=== PATIENT | female | born 1955 | race Caucasian/White ===

== ENCOUNTER 2019-07-08 13:47 | Observation (INO) ==
--- NOTE | 2019-07-08 14:29 | Emergency Department Note ---
Disposition Clinical Impression: Arrhythmia Qualifiers: Arrhythmia type: unspecified cardiac arrhythmia Qualified Code(s): I49.9 - Cardiac arrhythmia, unspecified Disposition: Admitted As Inpatient Condition: Good Time of Disposition: 17:05 General Adult HPI - General Chief complaint: ED Arrhythmia/Palpitations Stated complaint: "heart is out of rhythm" Time Seen by Provider: 07/08/19 13:54 Source: patient Limitations: no limitations - History of Present Illness HPI Narrative: 63 year old female with history of hypertension, hyperlipidemia, and osteoporosis presents to the emergency department for her "heart being out of rhythm." She states this started a week ago after being treated for cystitis with macrobid and amoxicillin. She states her heart flutters and feels funny constantly throughout the day, is not exertional or positional. She denies chest pain or chest pressure but does say she has a burning sensation. She does admit to some intermittent shortness of breath that is worse if exerting herself but not positional. She states she does have some lightheadedness but nothing that is new. She said she saw her nurse practitioner who did an EKG and said she was okay to go home. The patient called her manufacturing sr engineer today and was told to come to the emergency department. Denies nausea, vomiting, diarrhea, dysuria, frequency, abdominal pain, fever, chills, Pain Scale: 0 - Related Data Home Medications Medication Instructions Recorded Confirmed Verapamil HCl [Calan] 40 mg PO BID PRN 05/21/15 04/27/19 Celecoxib [Celebrex] 200 mg PO DAILY PRN 02/15/16 04/27/19 Levalbuterol HCl [Xopenex Neb] 3 ml IH QID PRN 02/15/16 04/27/19 Atorvastatin [Lipitor] 20 mg PO HS 01/12/17 04/27/19 [place]-3 Acid Ethyl Esters [Lovaza] 1 gm PO DAILY 01/12/17 04/27/19 Fluticasone/Vilanterol [Breo 1 puff IH DAILY 08/05/17 04/27/19 Ellipta 200-25 Mcg INH] Fluticasone Propionate Nasal 1 spr NS DAILY PRN 01/04/18 04/27/19 [Flonase] HYDROcodone/Acet 5/325 mg [[place] 1 tab PO DAILY PRN 01/04/18 04/27/19 5-325 mg] Oxygen 2 l IH AD 01/04/18 04/27/19 Previous Rx's Medication Instructions Recorded Doxycycline 100 mg PO BID #20 capsule 04/27/19 Allergies Allergy/AdvReac Type Severity Reaction Status Date / Time azithromycin Allergy Unknown Unknown Verified 04/27/19 10:15 Cefaclor Allergy Unknown Unknown Verified 04/27/19 10:15 Cephalosporins Allergy Unknown Unknown Verified 04/27/19 10:15 ciprofloxacin Allergy Unknown Unknown Verified 04/27/19 10:15 Macrolide Antibiotics Allergy Unknown Unknown Verified 04/27/19 10:15 ofloxacin Allergy Unknown Unknown Verified 04/27/19 10:15 Quinolones Allergy Unknown Unknown Verified 04/27/19 10:15 Beta-Lactum Allergy Unknown Unknown Uncoded 04/27/19 10:15 Constitutional: Denies: fever Cardiovascular: Reports: palpitations. Denies: chest pain, edema, syncope Respiratory: Reports: other (intermintent shortness of breath that is not exertional or positional). Denies: cough, dyspnea Gastrointestinal: Denies: abdominal pain, nausea, vomiting, diarrhea Genitourinary: Denies: urgency, dysuria, frequency Neurological: Denies: headache, weakness, numbness, paresthesias Past Medical History - Past Medical History Medical history: Reports: COPD, DVT, hyperlipidemia, hypertension, osteoporosis, other Surgical history: Reports: appendectomy, , hip replacement, hysterectomy, orthopedic, other Psychiatric history: Reports: no psych history INFANT BABYSITTER history: Reports: no INFANT BABYSITTER history - Social History Smoking Status: Never smoker Smokeless Tobacco Status: No Alcohol use: Reports: none Drug use: Reports: none Physical Exam - General Limitations: no limitations General appearance: alert, in no apparent distress - Head Head exam: atraumatic, normocephalic - Eye Eye exam: Present: normal appearance, PERRL, EOMI - Chest Chest inspection: Present: normal inspection, symmetric chest wall rise. Absent: tenderness - Respiratory Respiratory exam: Present: normal lung sounds bilaterally. Absent: respiratory distress, wheezes - Cardiovascular Cardiovascular exam: Present: regular rate, normal rhythm - Abdominal Exam Abdominal exam: Present: soft, Non-Tender. Absent: distention, guarding, rigidity - Expanded Lower Extremity Exam Lower leg exam: Present: other (2 plus pitting edema bilaterally ) Neurovascular/Tendon exam: Present: other (DP and PT pulses +2/4 bilaterally lower extremity) - Psychiatric Psychiatric exam: Present: normal affect, normal mood Course Vital Signs Temperature 98.4 F 07/08/19 13:52 Pulse Rate 56 07/08/19 13:52 Respiratory Rate 16 07/08/19 13:52 Blood Pressure 152/81 07/08/19 13:52 O2 Sat by Pulse Oximetry 96 07/08/19 13:52 Temperature 98.4 F 07/08/19 14:00 Pulse Rate 75 07/08/19 16:50 Respiratory Rate 17 07/08/19 16:50 Blood Pressure 140/80 07/08/19 16:50 O2 Sat by Pulse Oximetry 98 07/08/19 16:50 Oxygen Delivery Oxygen Delivery Room Air Medical Decision Making - Lab Data Result diagrams: 07/08/19 14:10 07/08/19 14:10 Lab Results 07/08/19 07/08/19 07/08/19 Range/Units 14:10 14:10 14:10 WBC 7.5 (4.3-11.1) K/mcL RBC 4.44 (3.82-4.97) M/mcL Hgb 14.0 (11.5-15.4) g/dL Hct 42.4 (35.3-44.9) % MCV 95.5 (83.0-100.0) fL MCH 31.5 (28.0-33.3) pg MCHC 33.0 (31.6-35.5) g/dL RDW 12.9 (11.5-14.5) % Plt Count 309 (140-400) K/mcL MPV 10.0 (9.4-12.4) fL Immature Gran % 0.3 (0-4) % Seg Neutrophils % 42.6 % Lymphocytes % 44.1 % Monocytes % 9.4 % Eosinophils % 2.9 % Basophils % 0.7 % Neutrophils # 3.2 (1.6-8.9) K/mcL Lymphocytes # 3.3 (0.6-4.6) K/mcL Monocytes # 0.7 (0.0-1.3) K/mcL Eosinophils # 0.2 (0.0-0.6) K/mcL Basophils # 0.1 (0.0-0.2) K/mcL PT 10.7 (9.4-12.1) Seconds INR 0.9 APTT 39.2 H (26.0-36.0) Seconds Sodium 141 (136-145) mEq/L Potassium 4.0 (3.5-5.1) mEq/L Chloride 103 (98-107) mEq/L Carbon Dioxide 28 (23-29) mEq/L BUN 15 (8-23) mg/dL Creatinine 0.76 (0.60-1.20) mg/dL Est GFR ( Amer) > 60 (> 60) Est GFR (Non-Af Amer) > 60 (> 60) BUN/Creatinine Ratio 20 (6-26) Glucose 106 H (70-105) mg/dL Calculated Osmolality 293 (280-300) Calcium 9.9 (8.6-10.3) mg/dL Magnesium 2.0 (1.6-2.6) mg/dL Troponin I < 0.03 (< 0.04) ng/mL TSH 1.389 (0.340-5.600) mcIU/mL Urine Color (Yellow) Urine Clarity (Clear) Urine pH (5.0-8.0) pH Units Ur Specific [place] (1.010-1.025) Urine Protein (Neg-Trace) mg/dL Urine Glucose (UA) (Normal) mg/dL Urine Ketones (Negative) mg/dL Urine Blood (Negative) Urine Nitrite (Negative) Urine Bilirubin (Negative) Urine Urobilinogen (Normal) mg/dL Ur Leukocyte Esterase (Negative) Ur Culture Indicated? (NO) Urine Opiates Screen (Hngsmg=157) ng/mL Ur Buprenorphine Scrn (Cutoff=5) ng/mL Ur Barbiturates Screen (Apgtqf=832) ng/mL Ur Phencyclidine Scrn (Cutoff=25) ng/mL Ur Amphetamines Screen (Jytpyi=0027) ng/mL U Benzodiazepines Scrn (Nvjvwi=699) ng/mL Urine Cocaine Screen (Cutoff= 300) ng/mL U Marijuana (THC) Screen (Cutoff = 50) ng/mL Ur Drug Screen Interp 07/08/19 07/08/19 Range/Units 14:57 14:57 WBC (4.3-11.1) K/mcL RBC (3.82-4.97) M/mcL Hgb (11.5-15.4) g/dL Hct (35.3-44.9) % MCV (83.0-100.0) fL MCH (28.0-33.3) pg MCHC (31.6-35.5) g/dL RDW (11.5-14.5) % Plt Count (140-400) K/mcL MPV (9.4-12.4) fL Immature Gran % (0-4) % Seg Neutrophils % % Lymphocytes % % Monocytes % % Eosinophils % % Basophils % % Neutrophils # (1.6-8.9) K/mcL Lymphocytes # (0.6-4.6) K/mcL Monocytes # (0.0-1.3) K/mcL Eosinophils # (0.0-0.6) K/mcL Basophils # (0.0-0.2) K/mcL PT (9.4-12.1) Seconds INR APTT (26.0-36.0) Seconds Sodium (136-145) mEq/L Potassium (3.5-5.1) mEq/L Chloride (98-107) mEq/L Carbon Dioxide (23-29) mEq/L BUN (8-23) mg/dL Creatinine (0.60-1.20) mg/dL Est GFR ( Amer) (> 60) Est GFR (Non-Af Amer) (> 60) BUN/Creatinine Ratio (6-26) Glucose (70-105) mg/dL Calculated Osmolality (280-300) Calcium (8.6-10.3) mg/dL Magnesium (1.6-2.6) mg/dL Troponin I (< 0.04) ng/mL TSH (0.340-5.600) mcIU/mL Urine Color Yellow (Yellow) Urine Clarity Clear (Clear) Urine pH 6.0 (5.0-8.0) pH Units Ur Specific [place] 1.013 (1.010-1.025) Urine Protein Negative (Neg-Trace) mg/dL Urine Glucose (UA) Normal (Normal) mg/dL Urine Ketones Negative (Negative) mg/dL Urine Blood Negative (Negative) Urine Nitrite Negative (Negative) Urine Bilirubin Negative (Negative) Urine Urobilinogen Normal (Normal) mg/dL Ur Leukocyte Esterase Negative (Negative) Ur Culture Indicated? NO (NO) Urine Opiates Screen Negative (Dnzprh=829) ng/mL Ur Buprenorphine Scrn Negative (Cutoff=5) ng/mL Ur Barbiturates Screen Negative (Ecmfpb=167) ng/mL Ur Phencyclidine Scrn Negative (Cutoff=25) ng/mL Ur Amphetamines Screen Negative (Kgjzvk=1654) ng/mL U Benzodiazepines Scrn Negative (Ssoazi=023) ng/mL Urine Cocaine Screen Negative (Cutoff= 300) ng/mL U Marijuana (THC) Screen Negative (Cutoff = 50) ng/mL Ur Drug Screen Interp See Below
[2019-07-08] MEDS ORDERED: Aspirin 325 MG TABLET PO ONE (14:33)
[2019-07-08 14:45] LABS: Basophils # 0.1 K/mcL (0.0-0.2); Basophils % 0.7 %; Eosinophils # 0.2 K/mcL (0.0-0.6); Eosinophils % 2.9 %; Hematocrit 42.4 % (35.3-44.9); Immature Granulocytes % 0.3 % (0-4); Lymphocytes # 3.3 K/mcL (0.6-4.6); Lymphocytes % 44.1 %; Mean Corpuscular Hemoglobin 31.5 pg (28.0-33.3); Mean Corpuscular Volume 95.5 fL (83.0-100.0); Monocytes # 0.7 K/mcL (0.0-1.3); Monocytes % 9.4 %; Neutrophils # 3.2 K/mcL (1.6-8.9); Platelet Count 309 K/mcL (140-400); Red Blood Count 4.44 M/mcL (3.82-4.97); Red Cell Distribution Width 12.9 % (11.5-14.5); Segmented Neutrophils % 42.6 %; White Blood Count 7.5 K/mcL (4.3-11.1)
[2019-07-08 15:08] LABS: INR 0.9; Prothrombin Time 10.7 Seconds (9.4-12.1)
[2019-07-08 15:11] LABS: Activated Partial Thrombo Time 39.2 Seconds (26.0-36.0)
[2019-07-08] MEDS ORDERED: Nitroglycerin 0.4 MG TAB.SUBL SL PRN (15:12)
[2019-07-08 15:14] LABS: BUN/Creatinine Ratio 20 (6-26); Blood Urea Nitrogen 15 mg/dL (8-23); Calcium 9.9 mg/dL (8.6-10.3); Carbon Dioxide 28 mEq/L (23-29); Chloride 103 mEq/L (98-107); Glucose 106 mg/dL (70-105); Osmolality,Calculated 293 (280-300); Sodium 141 mEq/L (136-145); Troponin I < 0.03 ng/mL (< 0.04); eGFR For African Americans > 60 (> 60); eGFR For Non-African Americans > 60 (> 60)
[2019-07-08 15:20] LABS: Thyroid Stimulating Hormone 1.389 mcIU/mL (0.340-5.600)
--- NOTE | 2019-07-08 15:20 | Emergency Department Note ---
Disposition Clinical Impression: Arrhythmia Qualifiers: Arrhythmia type: unspecified cardiac arrhythmia Qualified Code(s): I49.9 - Cardiac arrhythmia, unspecified Disposition: Admitted As Inpatient Condition: Good Referrals: Flakito Mercado MD [Primary Care Provider] - Forms: ED Satisfaction Letter Time of Disposition: 16:58 Arrhythmia/Palpitations HPI - General Chief Complaint: ED Arrhythmia/Palpitations Stated Complaint: "heart is out of rhythm" Time Seen by Provider: 07/08/19 13:54 Source: patient Mode of arrival: private vehicle Limitations: no limitations Nursing Notes Reviewed: Yes Vital Signs Reviewed: Yes - History of Present Illness HPI Narrative: 63F that has been feeling like her heart is out of rhythm and felt unwell for a week, went and saw her PCP a week ago who dx her with UTI, placed her on macrobid, ordered a heart monitor on the internet which told her that her heart rhythm was "not normal", she returned to PCP's yesterday, they ordered an event monitor, sent her home. She then called Dr. Kathleen Lauren's office this morning and they recommended that she be evaluated here. Pt reports she initially started seeing Dr. Lauren for swelling in her legs, about a month ago. Pt reports lightheadedness, exertional SOB, left sided sharp chest pain. Pt reports 4/10 chest heaviness right now. She denies dysuria/urinary frequency right now. - Related Data Home Medications Medication Instructions Recorded Confirmed Verapamil HCl [Calan] 40 mg PO BID PRN 05/21/15 04/27/19 Celecoxib [Celebrex] 200 mg PO DAILY PRN 02/15/16 04/27/19 Levalbuterol HCl [Xopenex Neb] 3 ml IH QID PRN 02/15/16 04/27/19 Atorvastatin [Lipitor] 20 mg PO HS 01/12/17 04/27/19 [place]-3 Acid Ethyl Esters [Lovaza] 1 gm PO DAILY 01/12/17 04/27/19 Fluticasone/Vilanterol [Breo 1 puff IH DAILY 08/05/17 04/27/19 Ellipta 200-25 Mcg INH] Fluticasone Propionate Nasal 1 spr NS DAILY PRN 01/04/18 04/27/19 [Flonase] HYDROcodone/Acet 5/325 mg [[place] 1 tab PO DAILY PRN 01/04/18 04/27/19 5-325 mg] Oxygen 2 l IH AD 01/04/18 04/27/19 Previous Rx's Medication Instructions Recorded Doxycycline 100 mg PO BID #20 capsule 04/27/19 Allergies Allergy/AdvReac Type Severity Reaction Status Date / Time azithromycin Allergy Unknown Unknown Verified 04/27/19 10:15 Cefaclor Allergy Unknown Unknown Verified 04/27/19 10:15 Cephalosporins Allergy Unknown Unknown Verified 04/27/19 10:15 ciprofloxacin Allergy Unknown Unknown Verified 04/27/19 10:15 Macrolide Antibiotics Allergy Unknown Unknown Verified 04/27/19 10:15 ofloxacin Allergy Unknown Unknown Verified 04/27/19 10:15 Quinolones Allergy Unknown Unknown Verified 04/27/19 10:15 Beta-Lactum Allergy Unknown Unknown Uncoded 04/27/19 10:15 Review of Systems: In addition to that documented in the HPI above, the additional ROS was obtained: Constitutional: Denies fevers or chills Eyes: Denies vision changes ENMT: Denies sore throat CV: Reports left sided chest pain, chest heaviness Resp: Reports exertional SOB GI: Denies vomiting or diarrhea : Denies painful urination or urinary frequency MSK: Denies recent trauma Skin: Denies new rashes Neuro: Denies new numbness or tingling or weakness Reports lightheadedness All systems ED: reviewed and negative except as stated. Constitutional: Denies: fever Cardiovascular: Reports: palpitations. Denies: chest pain, edema, syncope Respiratory: Reports: other (intermintent shortness of breath that is not exertional or positional). Denies: cough, dyspnea Gastrointestinal: Denies: abdominal pain, nausea, vomiting, diarrhea Genitourinary: Denies: urgency, dysuria, frequency Neurological: Denies: headache, weakness, numbness, paresthesias Past Medical History - Past Medical History Attestation: Yes The following information was validated with the patient. Medical history: Reports: COPD, DVT, hyperlipidemia, hypertension, osteoporosis, other Surgical history: Reports: appendectomy, , hip replacement, hysterectomy, orthopedic, other Psychiatric history: Reports: no psych history COUNTER MAKER history: Reports: no COUNTER MAKER history - Social History Smoking Status: Never smoker Smokeless Tobacco Status: No Alcohol use: Reports: none Drug use: Reports: none Physical Exam General: A&O x 3. No acute distress. Well developed, well nourished. Head: atraumatic, normocephalic. ENT: No conjunctival injection, no scleral icterus. PERRLA. EOMI. Oropharynx non- erythematous. mucous membranes moist. Neuro: No focal deficits, no speech deficit, no facial droop, mentating well. BUE/BLE Str 5/5. Pulm: Lungs CTAB A/P. No wheezes, rales, ronchi. Cardio: Irregular rhythm. No m/r/g. Chest not tender to palpation. Abd: Soft, non-distended. Normoactive bowel sounds. Non-tender to palpation. No guarding. Non rigid. Extremities: Radial pulses 2+ brandy, dorsalis pedis/posterior tibialis 2+ brandy. No LE edema. No cyanosis, clubbing. Skin: warm, dry, intact. No rashes. Psych: Appropriate mood and affect. Answers questions appropriately. Cooperative with exam. - General Limitations: no limitations General appearance: alert, in no apparent distress Course Vital Signs Temperature 98.4 F 07/08/19 13:52 Pulse Rate 56 07/08/19 13:52 Respiratory Rate 16 07/08/19 13:52 Blood Pressure 152/81 07/08/19 13:52 O2 Sat by Pulse Oximetry 96 07/08/19 13:52 Temperature 98.4 F 07/08/19 14:00 Pulse Rate 75 07/08/19 16:50 Respiratory Rate 17 07/08/19 16:50 Blood Pressure 140/80 07/08/19 16:50 O2 Sat by Pulse Oximetry 98 07/08/19 16:50 Oxygen Delivery Oxygen Delivery Room Air Arrhythmia/Palpitations - [facility] Narrative Medical decision making narrative: 63F with Pmhx of HTN who presents with one week of heart palpitations that were also picked up by an internet heart monitor that was advised to come here by her assistant director of admissions. Pt currently has burning chest pain and heaviness, will do a nitro trial and administer an aspirin. Suspect admission. Patient was given a nitroglycerin which she states alleviated her chest heaviness but did not alleviate the burning pain in the left side of her chest. Patient's chest x-ray did not show any acute abnormalities. Troponin was negative. Pt did have an irregular heart rate on physical exam and EKG showed PVCs. Cardiology was consulted, Dr Sreedhar Lauren responded and had no further recommendations at this time. Pt was admitted to the hospitalist, Dr. Matt, who agreed to accept the patient to his service. Results of the workup were shared with the patient at the bedside, she was given an opportunity to ask questions, and all of her concerns were addressed. Pt was stable at time of disposition. - Medical Records Medical records reviewed: Yes I reviewed the patient's medical records. - Lab Data Lab results reviewed: Yes I reviewed the patient's lab results. Result diagrams: 07/08/19 14:10 07/08/19 14:10 Lab Results 07/08/19 07/08/19 07/08/19 Range/Units 14:10 14:10 14:10 WBC 7.5 (4.3-11.1) K/mcL RBC 4.44 (3.82-4.97) M/mcL Hgb 14.0 (11.5-15.4) g/dL Hct 42.4 (35.3-44.9) % MCV 95.5 (83.0-100.0) fL MCH 31.5 (28.0-33.3) pg MCHC 33.0 (31.6-35.5) g/dL RDW 12.9 (11.5-14.5) % Plt Count 309 (140-400) K/mcL MPV 10.0 (9.4-12.4) fL Immature Gran % 0.3 (0-4) % Seg Neutrophils % 42.6 % Lymphocytes % 44.1 % Monocytes % 9.4 % Eosinophils % 2.9 % Basophils % 0.7 % Neutrophils # 3.2 (1.6-8.9) K/mcL Lymphocytes # 3.3 (0.6-4.6) K/mcL Monocytes # 0.7 (0.0-1.3) K/mcL Eosinophils # 0.2 (0.0-0.6) K/mcL Basophils # 0.1 (0.0-0.2) K/mcL PT 10.7 (9.4-12.1) Seconds INR 0.9 APTT 39.2 H (26.0-36.0) Seconds Sodium 141 (136-145) mEq/L Potassium 4.0 (3.5-5.1) mEq/L Chloride 103 (98-107) mEq/L Carbon Dioxide 28 (23-29) mEq/L BUN 15 (8-23) mg/dL Creatinine 0.76 (0.60-1.20) mg/dL Est GFR ( Amer) > 60 (> 60) Est GFR (Non-Af Amer) > 60 (> 60) BUN/Creatinine Ratio 20 (6-26) Glucose 106 H (70-105) mg/dL Calculated Osmolality 293 (280-300) Calcium 9.9 (8.6-10.3) mg/dL Magnesium 2.0 (1.6-2.6) mg/dL Troponin I < 0.03 (< 0.04) ng/mL TSH 1.389 (0.340-5.600) mcIU/mL Urine Color (Yellow) Urine Clarity (Clear) Urine pH (5.0-8.0) pH Units Ur Specific [place] (1.010-1.025) Urine Protein (Neg-Trace) mg/dL Urine Glucose (UA) (Normal) mg/dL Urine Ketones (Negative) mg/dL Urine Blood (Negative) Urine Nitrite (Negative) Urine Bilirubin (Negative) Urine Urobilinogen (Normal) mg/dL Ur Leukocyte Esterase (Negative) Ur Culture Indicated? (NO) Urine Opiates Screen (Ezjnhe=810) ng/mL Ur Buprenorphine Scrn (Cutoff=5) ng/mL Ur Barbiturates Screen (Ffkqpx=200) ng/mL Ur Phencyclidine Scrn (Cutoff=25) ng/mL Ur Amphetamines Screen (Uuzfpi=4152) ng/mL U Benzodiazepines Scrn (Lkvpmf=493) ng/mL Urine Cocaine Screen (Cutoff= 300) ng/mL U Marijuana (THC) Screen (Cutoff = 50) ng/mL Ur Drug Screen Interp 07/08/19 07/08/19 Range/Units 14:57 14:57 WBC (4.3-11.1) K/mcL RBC (3.82-4.97) M/mcL Hgb (11.5-15.4) g/dL Hct (35.3-44.9) % MCV (83.0-100.0) fL MCH (28.0-33.3) pg MCHC (31.6-35.5) g/dL RDW (11.5-14.5) % Plt Count (140-400) K/mcL MPV (9.4-12.4) fL Immature Gran % (0-4) % Seg Neutrophils % % Lymphocytes % % Monocytes % % Eosinophils % % Basophils % % Neutrophils # (1.6-8.9) K/mcL Lymphocytes # (0.6-4.6) K/mcL Monocytes # (0.0-1.3) K/mcL Eosinophils # (0.0-0.6) K/mcL Basophils # (0.0-0.2) K/mcL PT (9.4-12.1) Seconds INR APTT (26.0-36.0) Seconds Sodium (136-145) mEq/L Potassium (3.5-5.1) mEq/L Chloride (98-107) mEq/L Carbon Dioxide (23-29) mEq/L BUN (8-23) mg/dL Creatinine (0.60-1.20) mg/dL Est GFR ( Amer) (> 60) Est GFR (Non-Af Amer) (> 60) BUN/Creatinine Ratio (6-26) Glucose (70-105) mg/dL Calculated Osmolality (280-300) Calcium (8.6-10.3) mg/dL Magnesium (1.6-2.6) mg/dL Troponin I (< 0.04) ng/mL TSH (0.340-5.600) mcIU/mL Urine Color Yellow (Yellow) Urine Clarity Clear (Clear) Urine pH 6.0 (5.0-8.0) pH Units Ur Specific [place] 1.013 (1.010-1.025) Urine Protein Negative (Neg-Trace) mg/dL Urine Glucose (UA) Normal (Normal) mg/dL Urine Ketones Negative (Negative) mg/dL Urine Blood Negative (Negative) Urine Nitrite Negative (Negative) Urine Bilirubin Negative (Negative) Urine Urobilinogen Normal (Normal) mg/dL Ur Leukocyte Esterase Negative (Negative) Ur Culture Indicated? NO (NO) Urine Opiates Screen Negative (Mzaqzo=724) ng/mL Ur Buprenorphine Scrn Negative (Cutoff=5) ng/mL Ur Barbiturates Screen Negative (Cbtsit=693) ng/mL Ur Phencyclidine Scrn Negative (Cutoff=25) ng/mL Ur Amphetamines Screen Negative (Mvibat=3751) ng/mL U Benzodiazepines Scrn Negative (Stgxrt=700) ng/mL Urine Cocaine Screen Negative (Cutoff= 300) ng/mL U Marijuana (THC) Screen Negative (Cutoff = 50) ng/mL Ur Drug Screen Interp See Below - Radiology Data Radiology results reviewed: Yes I reviewed the patient's radiology results. Chest X-Ray 07/08/19 14:58 IMPRESSION: No acute cardiopulmonary process. D/ / 07/08/2019 15:09:26 Cora De MD / April Ramírez Interpreting Provider: Cora De MD - EKG Data EKG attestation: Yes I reviewed and interpreted this EKG. EKG results narrative: Heart rate 84, rhythm sinus with frequent PVCs, axis normal. Intervals within normal limits. No ST segment elevation noted. Minimal ST depression noted in leads 2, aVL, V4 through V6. When compared with previous EKG dated 06/30/2013 previous EKG shows sinus rhythm.
--- NOTE | 2019-07-08 15:22 | Emergency Department Note ---
Disposition Clinical Impression: Arrhythmia Qualifiers: Arrhythmia type: unspecified cardiac arrhythmia Qualified Code(s): I49.9 - Cardiac arrhythmia, unspecified Disposition: Admitted As Inpatient Condition: Good Time of Disposition: 17:03 General Adult HPI - General Chief complaint: ED Arrhythmia/Palpitations Stated complaint: "heart is out of rhythm" Time Seen by Provider: 07/08/19 13:54 Source: patient Mode of arrival: private vehicle Limitations: no limitations Nursing Notes Reviewed: Yes Vital Signs Reviewed: Yes - History of Present Illness Pain Scale: 0 - Related Data Home Medications Medication Instructions Recorded Confirmed Verapamil HCl [Calan] 40 mg PO BID PRN 05/21/15 04/27/19 Celecoxib [Celebrex] 200 mg PO DAILY PRN 02/15/16 04/27/19 Levalbuterol HCl [Xopenex Neb] 3 ml IH QID PRN 02/15/16 04/27/19 Atorvastatin [Lipitor] 20 mg PO HS 01/12/17 04/27/19 [place]-3 Acid Ethyl Esters [Lovaza] 1 gm PO DAILY 01/12/17 04/27/19 Fluticasone/Vilanterol [Breo 1 puff IH DAILY 08/05/17 04/27/19 Ellipta 200-25 Mcg INH] Fluticasone Propionate Nasal 1 spr NS DAILY PRN 01/04/18 04/27/19 [Flonase] HYDROcodone/Acet 5/325 mg [[place] 1 tab PO DAILY PRN 01/04/18 04/27/19 5-325 mg] Oxygen 2 l IH AD 01/04/18 04/27/19 Previous Rx's Medication Instructions Recorded Doxycycline 100 mg PO BID #20 capsule 04/27/19 Allergies Allergy/AdvReac Type Severity Reaction Status Date / Time azithromycin Allergy Unknown Unknown Verified 04/27/19 10:15 Cefaclor Allergy Unknown Unknown Verified 04/27/19 10:15 Cephalosporins Allergy Unknown Unknown Verified 04/27/19 10:15 ciprofloxacin Allergy Unknown Unknown Verified 04/27/19 10:15 Macrolide Antibiotics Allergy Unknown Unknown Verified 04/27/19 10:15 ofloxacin Allergy Unknown Unknown Verified 04/27/19 10:15 Quinolones Allergy Unknown Unknown Verified 04/27/19 10:15 Beta-Lactum Allergy Unknown Unknown Uncoded 04/27/19 10:15 Constitutional: Denies: fever Cardiovascular: Reports: palpitations. Denies: chest pain, edema, syncope Respiratory: Reports: other (intermintent shortness of breath that is not exertional or positional). Denies: cough, dyspnea Gastrointestinal: Denies: abdominal pain, nausea, vomiting, diarrhea Genitourinary: Denies: urgency, dysuria, frequency Neurological: Denies: headache, weakness, numbness, paresthesias Past Medical History - Past Medical History Medical history: Reports: COPD, DVT, hyperlipidemia, hypertension, osteoporosis, other Surgical history: Reports: appendectomy, , hip replacement, hysterectomy, orthopedic, other Psychiatric history: Reports: no psych history GYPSUM CALCINER history: Reports: no GYPSUM CALCINER history - Social History Smoking Status: Never smoker Smokeless Tobacco Status: No Alcohol use: Reports: none Drug use: Reports: none Physical Exam - General Limitations: no limitations General appearance: alert, in no apparent distress Course Vital Signs Temperature 98.4 F 07/08/19 13:52 Pulse Rate 56 07/08/19 13:52 Respiratory Rate 16 07/08/19 13:52 Blood Pressure 152/81 07/08/19 13:52 O2 Sat by Pulse Oximetry 96 07/08/19 13:52 Temperature 98.4 F 07/08/19 14:00 Pulse Rate 75 07/08/19 16:50 Respiratory Rate 17 07/08/19 16:50 Blood Pressure 140/80 07/08/19 16:50 O2 Sat by Pulse Oximetry 98 07/08/19 16:50 Oxygen Delivery Oxygen Delivery Room Air Medical Decision Making - [facility] Narrative Medical decision making narrative: Chest X-Ray 07/08/19 14:58 IMPRESSION: No acute cardiopulmonary process. D/ / 07/08/2019 15:09:26 Cora De MD / April Ramírez Interpreting Provider: Cora De MD 1700 hrs. patient is admitted to the hospitalist service. They are in agreement with plan. - Lab Data Result diagrams: 07/08/19 14:10 07/08/19 14:10 Lab Results 07/08/19 07/08/19 07/08/19 Range/Units 14:10 14:10 14:10 WBC 7.5 (4.3-11.1) K/mcL RBC 4.44 (3.82-4.97) M/mcL Hgb 14.0 (11.5-15.4) g/dL Hct 42.4 (35.3-44.9) % MCV 95.5 (83.0-100.0) fL MCH 31.5 (28.0-33.3) pg MCHC 33.0 (31.6-35.5) g/dL RDW 12.9 (11.5-14.5) % Plt Count 309 (140-400) K/mcL MPV 10.0 (9.4-12.4) fL Immature Gran % 0.3 (0-4) % Seg Neutrophils % 42.6 % Lymphocytes % 44.1 % Monocytes % 9.4 % Eosinophils % 2.9 % Basophils % 0.7 % Neutrophils # 3.2 (1.6-8.9) K/mcL Lymphocytes # 3.3 (0.6-4.6) K/mcL Monocytes # 0.7 (0.0-1.3) K/mcL Eosinophils # 0.2 (0.0-0.6) K/mcL Basophils # 0.1 (0.0-0.2) K/mcL PT 10.7 (9.4-12.1) Seconds INR 0.9 APTT 39.2 H (26.0-36.0) Seconds Sodium 141 (136-145) mEq/L Potassium 4.0 (3.5-5.1) mEq/L Chloride 103 (98-107) mEq/L Carbon Dioxide 28 (23-29) mEq/L BUN 15 (8-23) mg/dL Creatinine 0.76 (0.60-1.20) mg/dL Est GFR ( Amer) > 60 (> 60) Est GFR (Non-Af Amer) > 60 (> 60) BUN/Creatinine Ratio 20 (6-26) Glucose 106 H (70-105) mg/dL Calculated Osmolality 293 (280-300) Calcium 9.9 (8.6-10.3) mg/dL Magnesium 2.0 (1.6-2.6) mg/dL Troponin I < 0.03 (< 0.04) ng/mL TSH 1.389 (0.340-5.600) mcIU/mL Urine Color (Yellow) Urine Clarity (Clear) Urine pH (5.0-8.0) pH Units Ur Specific [place] (1.010-1.025) Urine Protein (Neg-Trace) mg/dL Urine Glucose (UA) (Normal) mg/dL Urine Ketones (Negative) mg/dL Urine Blood (Negative) Urine Nitrite (Negative) Urine Bilirubin (Negative) Urine Urobilinogen (Normal) mg/dL Ur Leukocyte Esterase (Negative) Ur Culture Indicated? (NO) Urine Opiates Screen (Fqqwqq=904) ng/mL Ur Buprenorphine Scrn (Cutoff=5) ng/mL Ur Barbiturates Screen (Vkooti=061) ng/mL Ur Phencyclidine Scrn (Cutoff=25) ng/mL Ur Amphetamines Screen (Twriaf=1917) ng/mL U Benzodiazepines Scrn (Qywykd=387) ng/mL Urine Cocaine Screen (Cutoff= 300) ng/mL U Marijuana (THC) Screen (Cutoff = 50) ng/mL Ur Drug Screen Interp 07/08/19 07/08/19 Range/Units 14:57 14:57 WBC (4.3-11.1) K/mcL RBC (3.82-4.97) M/mcL Hgb (11.5-15.4) g/dL Hct (35.3-44.9) % MCV (83.0-100.0) fL MCH (28.0-33.3) pg MCHC (31.6-35.5) g/dL RDW (11.5-14.5) % Plt Count (140-400) K/mcL MPV (9.4-12.4) fL Immature Gran % (0-4) % Seg Neutrophils % % Lymphocytes % % Monocytes % % Eosinophils % % Basophils % % Neutrophils # (1.6-8.9) K/mcL Lymphocytes # (0.6-4.6) K/mcL Monocytes # (0.0-1.3) K/mcL Eosinophils # (0.0-0.6) K/mcL Basophils # (0.0-0.2) K/mcL PT (9.4-12.1) Seconds INR APTT (26.0-36.0) Seconds Sodium (136-145) mEq/L Potassium (3.5-5.1) mEq/L Chloride (98-107) mEq/L Carbon Dioxide (23-29) mEq/L BUN (8-23) mg/dL Creatinine (0.60-1.20) mg/dL Est GFR ( Amer) (> 60) Est GFR (Non-Af Amer) (> 60) BUN/Creatinine Ratio (6-26) Glucose (70-105) mg/dL Calculated Osmolality (280-300) Calcium (8.6-10.3) mg/dL Magnesium (1.6-2.6) mg/dL Troponin I (< 0.04) ng/mL TSH (0.340-5.600) mcIU/mL Urine Color Yellow (Yellow) Urine Clarity Clear (Clear) Urine pH 6.0 (5.0-8.0) pH Units Ur Specific [place] 1.013 (1.010-1.025) Urine Protein Negative (Neg-Trace) mg/dL Urine Glucose (UA) Normal (Normal) mg/dL Urine Ketones Negative (Negative) mg/dL Urine Blood Negative (Negative) Urine Nitrite Negative (Negative) Urine Bilirubin Negative (Negative) Urine Urobilinogen Normal (Normal) mg/dL Ur Leukocyte Esterase Negative (Negative) Ur Culture Indicated? NO (NO) Urine Opiates Screen Negative (Yrmvdu=183) ng/mL Ur Buprenorphine Scrn Negative (Cutoff=5) ng/mL Ur Barbiturates Screen Negative (Drqefd=909) ng/mL Ur Phencyclidine Scrn Negative (Cutoff=25) ng/mL Ur Amphetamines Screen Negative (Mhqkpb=2772) ng/mL U Benzodiazepines Scrn Negative (Jysfzh=096) ng/mL Urine Cocaine Screen Negative (Cutoff= 300) ng/mL U Marijuana (THC) Screen Negative (Cutoff = 50) ng/mL Ur Drug Screen Interp See Below Attestation Statement - Attestation Attestation: This documentation is done with the assistance of Dragon dictation. Despite efforts made to ensure accuracy, there may be inaccuracies in infection control coordinator or s pelling and typographical errors. I examined this patient and my medical decision-making was reviewed with the Resident Physician. I agree with the documented findings, disposition and treatment plan as described except to the extent set forth below. Patient was seen and evaluated by Dr. Nolasco, I agree with their evaluation and management plan, I supervised care the patient's stay. Patient presents today with what she describes as chest pressure she says that her heart rate has been out of sync for about a week. She attributes it to having a UTI which she can follow herself skipping beats. She spoke to her gang mower operator the toilet come in to be seen that Dr. Lauren. No chest pain at this time but more of a burning sensation. Rented a nitroglycerin trial aspirin she does have PVCs on her EKG and on her rhythm strip which looked unifocal. She most likely will need admission. I reviewed the residents documentation and agree with the residents assessment and plan of care. I have personally had face to face time with the patient. (Brief History, Brief Exam, and MDM) I personally supervised and was present for the rehman/critical portions of the following procedures completed by the resident: EKG was interpreted by the resident under my supervision, I agree with their interpretation.
[2019-07-08 15:35] LABS: Bilirubin,Urine Negative (Negative); Blood,Urine Negative (Negative); Clarity,Urine Clear (Clear); Color,Urine Yellow (Yellow); Glucose,Urine (UA) Normal (Normal); Ketones,Urine Negative (Negative); Leukocyte Esterase,Urine Negative (Negative); Nitrite,Urine Negative (Negative); Protein,Urine Negative (Neg-Trace); Specific Gravity,Urine 1.013 (1.010-1.025); Urobilinogen,Urine Normal (Normal)
[2019-07-08 15:38] LABS: Amphetamine Screen,Urine Negative ng/mL (Cutoff=1000); Barbiturate Screen,Urine Negative ng/mL (Cutoff=200); Benzodiazepines Screen,Urine Negative ng/mL (Cutoff=200); Cannabinoid Screen,Urine Negative ng/mL (Cutoff = 50); Cocaine Screen,Urine Negative ng/mL (Cutoff= 300); Opiate Screen,Urine Negative ng/mL (Cutoff=300); Phencyclidine Screen,Urine Negative ng/mL (Cutoff=25)
[2019-07-08] MEDS ORDERED: Naloxone 0.4 MG/ML INJ IVP PRN (16:59)
[2019-07-08] MEDS ORDERED: traMADol 50 MG TABLET PO PRN (16:59)
[2019-07-08] MEDS ORDERED: *HR* Promethazine 25 MG/ML VIAL IVP PRN (16:59)
[2019-07-08] MEDS ORDERED: Ondansetron 4 MG/2 ML VIAL IVP PRN (16:59)
[2019-07-08] MEDS ORDERED: Mag Hydrox/Al Hydrox/Simeth 30 ML UDC PO PRN (16:59)
[2019-07-08] MEDS ORDERED: Acetaminophen 325 MG TABLET PO PRN (16:59)
--- NOTE | 2019-07-08 17:03 | Internal Med History&Physical ---
Date of Encounter: 07/08/19 Time of Encounter: 17:18 Internal Medicine - H&P: HPI Admitted From: Home Plans for Post Hospital Care: Home History of present illness: Ms. Reece is a 63 year old female with history of hypertension, hyperlipidemia , COPD, and osteoporosis presents to the emergency department for palpitation. She was treated for UTI with Macrobid and amoxicillin about a week ago and then started developing palpitation. She ordered an online heart monitor which read as abnormal ecg. She was seen at PCP office and a event monitor was ordered, cardiology was contact later who advised patient to the ED for further evaluation. Pt reported burning sensation on the left sided chest with occasional shortness of breath. She denies chest pain, lightheadedness, or syncope. She denies drinking large amount of coffe. She take Breo for COPD but does not use albuterol currently. She never had PA or CAD in the past. She reported absence of fever, chills, or night sweat. In the ED, her vs were stable. Labs were unremarkable including normal electrolytes and troponin. EKG showed NSR with frequent PVCs. CXR was unremarkable. She is admitted for further evaluation. Code status will be full code while she is in the hospital. Past Med Surg Social Fam HX - Past Medical History Medical history: COPD, DVT, hyperlipidemia, hypertension, osteoporosis, other Additional medical history: vit d deficiency, Psychiatric history: no psych history - Past Surgical History Surgical History: appendectomy, , hip replacement, hysterectomy, orthopedic, other - Social History Smoking Status: Never smoker Smokeless Tobacco Status: No Alcohol use: none Drug use: none Internal Medicine - H&P: Meds Atorvastatin Calcium [Lipitor] 20 mg PO QPM 07/08/19 [History] Fluticasone/Vilanterol [Breo Ellipta 200-25 Mcg INH] 1 each IH BID 07/08/19 [History] Allergy/AdvReac Type Severity Reaction Status Date / Time azithromycin Allergy Unknown Unknown Verified 04/27/19 10:15 Cefaclor Allergy Unknown Unknown Verified 04/27/19 10:15 Cephalosporins Allergy Unknown Unknown Verified 04/27/19 10:15 ciprofloxacin Allergy Unknown Unknown Verified 04/27/19 10:15 Macrolide Antibiotics Allergy Unknown Unknown Verified 04/27/19 10:15 ofloxacin Allergy Unknown Unknown Verified 04/27/19 10:15 Quinolones Allergy Unknown Unknown Verified 04/27/19 10:15 Beta-Lactum Allergy Unknown Unknown Uncoded 04/27/19 10:15 All Systems PM: A 10-system review of systems was performed and is negative for pertinent findings except as documented above in the HPI. Review of systems: REVIEW OF SYSTEMS: CONSTITUTIONAL: No weight loss, fever, chills, weakness or fatigue. HEENT: Eyes: No visual loss, blurred vision, double vision or yellow sclerae. Ears, Nose, Throat: No hearing loss, sneezing, congestion, runny nose or sore throat. SKIN: No rash or itching. CARDIOVASCULAR: No chest pain, chest pressure or chest discomfort. No palpitations or edema. RESPIRATORY: No shortness of breath, cough or sputum. GASTROINTESTINAL: No anorexia, nausea, vomiting or diarrhea. No abdominal pain or blood. GENITOURINARY: No dysuria, urgency, or frequency. NEUROLOGICAL: No headache, dizziness, syncope, paralysis, ataxia, numbness or tingling in the extremities. No change in bowel or bladder control. MUSCULOSKELETAL: No muscle, back pain, joint pain or stiffness. HEMATOLOGIC: No anemia, bleeding or bruising. LYMPHATICS: No enlarged nodes. No history of splenectomy. PSYCHIATRIC: No history of depression or anxiety. ENDOCRINOLOGIC: No reports of sweating, cold or heat intolerance. No polyuria or polydipsia. - Constitutional Vitals: Temp Pulse Resp BP Pulse Ox 98.4 F 75 17 140/80 98 07/08/19 14:00 07/08/19 16:50 07/08/19 16:50 07/08/19 16:50 07/08/19 16:50 General appearance: Present: A&O X 3 Exam: PHYSICAL EXAMINATION: GENERAL APPEARANCE: The patient is alert, oriented and in no acute distress. HEENT: Head is normocephalic. The sinuses are nontender. Pupils are equal and reactive. The nares are patent. Oropharynx clear without lesions. NECK: Supple without lymphadenopathy. HEART: Regular rate and rhythm. LUNGS: No crackles or wheezes are heard. ABDOMEN: Soft, nontender, nondistended with good bowel sounds heard. Inguinal area is normal. EXTREMITIES: Without cyanosis, clubbing or edema. NEUROLOGICAL: Gross nonfocal. SKIN: Warm and dry without any rash. Internal Med - H&P Results - Labs CBC & Chem 7: 07/08/19 14:10 07/08/19 14:10 Labs: Short CBC 07/08/19 Range/Units 14:10 WBC 7.5 (4.3-11.1) K/mcL Hgb 14.0 (11.5-15.4) g/dL Hct 42.4 (35.3-44.9) % Plt Count 309 (140-400) K/mcL Neutrophils # 3.2 (1.6-8.9) K/mcL BMP 07/08/19 14:10 Sodium 141 Potassium 4.0 Chloride 103 Carbon Dioxide 28 BUN 15 Creatinine 0.76 Glucose 106 H Calcium 9.9 Cardiac Enzymes 07/08/19 Range/Units 14:10 Troponin I < 0.03 (< 0.04) ng/mL Urine 07/08/19 Range/Units 14:57 Urine Color Yellow (Yellow) Urine Clarity Clear (Clear) Urine pH 6.0 (5.0-8.0) pH Units Ur Specific [place] 1.013 (1.010-1.025) Urine Protein Negative (Neg-Trace) mg/dL Urine Glucose (UA) Normal (Normal) mg/dL - Impressions ITS Impressions Chest X-Ray 07/08/19 14:58 IMPRESSION: No acute cardiopulmonary process. D/ / 07/08/2019 15:09:26 oCra De MD / April Ramírez Interpreting Provider: Cora De MD - Assessment and Plan (1) Palpitation Current Visit: Yes Status: Acute Assessment and plan: 63 year old female presented with 1 week of hx of palpitation after taking Macrobid and amoxicillin. No hx of CAD or prior PA. Hx of COPD taking Breo but no albuterol. No coffein or ilicit drug use. Urine drug screen negative.TSH wnl. ECG showed NSR with frequent PVC. Recent ECHO in 05/2019 unremarkable. Cardiology consulted, appreciate help. (2) COPD (chronic obstructive pulmonary disease) Current Visit: No Status: Chronic Assessment and plan: stable, no signs of exacerbation, continue home meds. Qualifiers: COPD type: unspecified COPD Qualified Code(s): J44.9 - Chronic obstructive pulmonary disease, unspecified (3) Hyperlipidemia Current Visit: No Status: Chronic Assessment and plan: will repeat lipid panel in am, continue home meds. Qualifiers: Hyperlipidemia type: unspecified Qualified Code(s): E78.5 - Hyperlipidemia, unspecified (4) HTN (hypertension) Current Visit: Yes Status: Acute Assessment and plan: BP stable, continue monitoring. Qualifiers: Hypertension type: essential hypertension Qualified Code(s): I10 - Essential (primary) hypertension (5) Osteoporosis Current Visit: Yes Status: Acute Assessment and plan: cont home meds. Qualifiers: Osteoporosis type: unspecified Presence of current pathological fracture: unspecified Qualified Code(s): M81.0 - Age-related osteoporosis without current pathological fracture (6) DVT prophylaxis Current Visit: Yes Status: Acute Assessment and plan: heparin sq. - Time Spent With Patient Total time spent is greater than 50% in coordination of care (as documented) at patient's floor/unit and/or counseling patient: Greater than 35 minutes
[2019-07-08] MEDS: *HR* Heparin 5,000 UNIT/ML VIAL SQ SCH (18:47)
[2019-07-08] MEDS: (Fluticasone/Vilanterol [Breo Ellipta 200-25 Mcg Inh] IH SCH (19:58)
[2019-07-09 02:12] LABS: Basophils % 0.6 %; Eosinophils # 0.2 K/mcL (0.0-0.6); Eosinophils % 3.4 %; Hematocrit 40.2 % (35.3-44.9); Immature Granulocytes % 0.1 % (0-4); Lymphocytes # 3.2 K/mcL (0.6-4.6); Lymphocytes % 44.5 %; Mean Corpuscular HGB Conc 32.3 g/dL (31.6-35.5); Mean Corpuscular Hemoglobin 31.3 pg (28.0-33.3); Mean Corpuscular Volume 96.6 fL (83.0-100.0); Mean Platelet Volume 10.3 fL (9.4-12.4); Monocytes # 0.7 K/mcL (0.0-1.3); Monocytes % 10.3 %; Neutrophils # 2.9 K/mcL (1.6-8.9); Platelet Count 294 K/mcL (140-400); Red Blood Count 4.16 M/mcL (3.82-4.97); Red Cell Distribution Width 13.1 % (11.5-14.5); Segmented Neutrophils % 41.1 %; White Blood Count 7.1 K/mcL (4.3-11.1)
[2019-07-09 02:33] LABS: Alanine Aminotransferase 20 Units/L (7-52); Albumin 3.9 g/dL (3.5-5.7); Albumin/Globulin Ratio 1.8 (1.1-2.2); Alkaline Phosphatase 81 Units/L (34-104); Aspartate Amino Transferase 19 Units/L (13-39); BUN/Creatinine Ratio 19 (6-26); Bilirubin,Total 0.4 mg/dL (0.3-1.0); Blood Urea Nitrogen 14 mg/dL (8-23); Calcium 9.2 mg/dL (8.6-10.3); Carbon Dioxide 27 mEq/L (23-29); Chloride 103 mEq/L (98-107); Chol/HDL Ratio 5.2 (0-4.9); Cholesterol 203 mg/dL (< 200); Globulin 2.2 g/dL (2.4-3.5); Glucose 121 mg/dL (70-105); HDL Cholesterol 39 mg/dL (40-59); Osmolality,Calculated 294 (280-300); Potassium 3.8 mEq/L (3.5-5.1); Sodium 141 mEq/L (136-145); Total Protein 6.1 g/dL (6.4-8.9); Triglycerides 403 mg/dL (< 150); eGFR For African Americans > 60 (> 60); eGFR For Non-African Americans > 60 (> 60)
[2019-07-09] MEDS: *HR* Heparin 5,000 UNIT/ML VIAL SQ SCH (06:10)
[2019-07-09] MEDS ORDERED: Regadenoson 0.4 MG/5 ML SYRINGE IVP ONE (08:46)
[2019-07-09] MEDS: (Fluticasone/Vilanterol [Breo Ellipta 200-25 Mcg Inh] IH SCH (08:48)
--- NOTE | 2019-07-09 08:57 | Cardiology Consult Note ---
Date of Encounter: 07/09/19 Time of Encounter: 08:45 Assessment and Plan (1) Chest pain Current Visit: Yes Status: Acute Pt with multiple risk factors for CAD. Has frequent PVCs on EKG. Stress test had been ordered as outpatient but not yet completed. Will schedule for low level pharm nuclear stress test to evaluate for ischemia. Qualifiers: Chest pain type: unspecified Qualified Code(s): R07.9 - Chest pain, unspecified (2) PVCs (premature ventricular contractions) Current Visit: Yes Status: Acute Will schedule for stress test to evaluate for ischemia. Beta blockade. (3) Palpitation Current Visit: Yes Status: Acute (4) LAWRENCE (obstructive sleep apnea) Current Visit: No Status: Chronic Recently diagnosed. Has not yet been set up with CPAP. Discussion w patient/family: The assessment and plan as outlined above was discussed with the patient and/or family members who expressed understanding and agreement. All questions were ans wered. Thank you for involving us in the care of your patient. Please call with any questions. History of Present Illness Consult date: 07/09/19 Requesting physician: Mitra Matt Consult reason: palpitations, chest pain Chief complaint: palpitations, chest pain History of present illness: Ms. Reece is a 63 year old female with hyperlipidemia, hx DVT, SVT, LAWRENCE presents to [facility] with c/o palpitations, chest burning. Pt states that yesterday noted worsening palpitations as well as L sided chest burning associated with SOB, diaphoresis. Presented to ED for further evaluation/tx. Initial EKG demonstrates NSR with PVCs. Cardiac enzymes negative x 3. Denies SOB at rest, orthopnea, PND. Has mild ROMAN. Occasional palpitations with l ightheadedness once a month. No syncope. Has checked HR on pulse ox occasionally and "heart rate is in 250s." Occasional chest tightness/pressure with exertion over past year. Does not cause to stop activity. No alleviating/exacerbating factors. No radiation, no associated symptoms. Remote stress test years ago. Recently diagnosed with LAWRENCE- does not have CPAP. ----- Echo 02/2019 Impressions: LVEF 60-65%. Normal LV chamber size, wall thickness and function. Mild left ventricular diastolic dysfunction. Normal right ventricular structure and function. No evidence of pulmonary hypertension. No significant valvular dysfunction. Past Med Surg Social Fam HX - Past Medical History Source: patient, old records reviewed Medical history: COPD, DVT, hyperlipidemia, hypertension, osteoporosis, other (LAWRENCE) Additional medical history: vit d deficiency, Psychiatric history: no psych history - Past Surgical History Surgical History: appendectomy, , hip replacement, hysterectomy, orthopedic, other Additional surgical history: neck sx - Social History Smoking Status: Never smoker Smokeless Tobacco Status: No Alcohol use: none Drug use: none - Family History Mother Living Status: Age at : 71 Cause of : [place] Hx Family Cardiac Disorders: Yes ( of [place]) Hx Family Respiratory Disorders: Yes Hx Family Cancer: Yes (lung) Father Living Status: Age at : 59 Cause of : [place] Hx Family Cardiac Disorders: Yes Hx Family Cancer: Yes Hx Family Endocrine Disorder: Yes (DM) Medications and Allergies Atorvastatin Calcium [Lipitor] 20 mg PO QPM 07/08/19 [History] Fluticasone/Vilanterol [Breo Ellipta 200-25 Mcg INH] 1 each IH BID 07/08/19 [History] Allergy/AdvReac Type Severity Reaction Status Date / Time azithromycin Allergy Unknown Unknown Verified 04/27/19 10:15 Cefaclor Allergy Unknown Unknown Verified 04/27/19 10:15 Cephalosporins Allergy Unknown Unknown Verified 04/27/19 10:15 ciprofloxacin Allergy Unknown Unknown Verified 04/27/19 10:15 Macrolide Antibiotics Allergy Unknown Unknown Verified 04/27/19 10:15 ofloxacin Allergy Unknown Unknown Verified 04/27/19 10:15 Quinolones Allergy Unknown Unknown Verified 04/27/19 10:15 Beta-Lactum Allergy Unknown Unknown Uncoded 04/27/19 10:15 All Systems Review: The remainder of the systems were reviewed and are negative - Cardiovascular Cardiovascular: as per HPI Physical Examination Vital Signs, Last 4 Hours Temp Pulse Resp BP Pulse Ox 07/09/19 07:24 98.3 F 59 16 130/80 96 General: Conversant, No Apparent Distress HEENT: Atraumatic, Normocephaly, Mucus Membranes Moist Neck: No JVD, Normal carotid pulses Cardiac: Reg Rate and Rhythm, Normal S1 and S2, No Murmur Lungs: Normal Breath Sounds, No Wheeze, Rales, Rhonchi Neuro: Alert and responsive, No focal deficits noted Abdomen: Soft, Non-Tender Skin: No rashes noted on visualized skin Musculoskeletal: No Chest Wall Tenderness Extremities: No Clubbing, No Cyanosis, No Edema, Normal Pulses Results 07/09/19 00:53 07/09/19 00:53 Lab Results 07/08/19 07/08/19 07/08/19 14:10 14:10 14:10 WBC 7.5 Hgb 14.0 Hct 42.4 Plt Count 309 INR 0.9 APTT 39.2 H Sodium 141 Potassium 4.0 Chloride 103 Carbon Dioxide 28 BUN 15 Creatinine 0.76 Glucose 106 H Calcium 9.9 Magnesium 2.0 Total Bilirubin AST ALT Alkaline Phosphatase Troponin I < 0.03 TSH 1.389 07/08/19 07/08/19 07/09/19 17:54 23:43 00:53 WBC 7.1 Hgb 13.0 Hct 40.2 Plt Count 294 INR APTT Sodium Potassium Chloride Carbon Dioxide BUN Creatinine Glucose Calcium Magnesium Total Bilirubin AST ALT Alkaline Phosphatase Troponin I < 0.03 < 0.03 TSH 07/09/19 07/09/19 00:53 05:53 WBC Hgb Hct Plt Count INR APTT Sodium 141 Potassium 3.8 Chloride 103 Carbon Dioxide 27 BUN 14 Creatinine 0.75 Glucose 121 H Calcium 9.2 Magnesium Total Bilirubin 0.4 AST 19 ALT 20 Alkaline Phosphatase 81 Troponin I < 0.03 TSH - EKG Interpretation EKG results cardiology: personally reviewed (NSR with PVCs) Consult Discharge Plan - Plan Referrals: Flakito Mercado MD [Primary Care Provider] -
--- NOTE | 2019-07-09 10:00 | Internal Med Progress Note ---
Hospitalist Progress Note - Encounter Date of Encounter: 07/09/19 Time of Encounter: 09:58 - Subjective Interval History: Ms. Reece is a 63 year old female with history of hypertension, hyperlipidemia, COPD, and osteoporosis presents to the emergency department for palpitation. She was treated for UTI with Macrobid and amoxicillin about a week ago and then started developing palpitation. She ordered an online heart monitor which read as abnormal ecg. She was seen at PCP office and a event monitor was ordered, cardiology was contact later who advised patient to the ED for further evaluation. Pt reported burning sensation on the left sided chest with occasional shortness of breath. She denies chest pain, lightheadedness, or syncope. She denies drinking large amount of coffe. She take Breo for COPD but does not use albuterol currently. She never had NM or CAD in the past. She reported absence of fever, chills, or night sweat. Pt seen and examined in the room, she reported absence of palpitation overnight. - Exam Vitals: Temp Pulse Resp BP Pulse Ox 98.3 F 59 16 130/80 96 07/09/19 07:24 07/09/19 07:24 07/09/19 07:24 07/09/19 07:24 07/09/19 07:24 Exam: PHYSICAL EXAMINATION: GENERAL APPEARANCE: The patient is alert, oriented and in no acute distress. HEENT: Head is normocephalic. The sinuses are nontender. Pupils are equal and reactive. The nares are patent. Oropharynx clear without lesions. NECK: Supple without lymphadenopathy. HEART: Regular rate and rhythm. LUNGS: No crackles or wheezes are heard. ABDOMEN: Soft, nontender, nondistended with good bowel sounds heard. Inguinal area is normal. EXTREMITIES: Without cyanosis, clubbing or edema. NEUROLOGICAL: Gross nonfocal. SKIN: Warm and dry without any rash. - Assessment and Plan (1) Palpitation Current Visit: Yes Status: Acute Assessment and Plan: 07/08 63 year old female presented with 1 week of hx of palpitation after taking Macrobid and amoxicillin. No hx of CAD or prior NM. Hx of COPD taking Breo but no albuterol. No coffein or ilicit drug use. Urine drug screen negative.TSH wnl. ECG showed NSR with frequent PVC. Recent ECHO in 05/2019 unremarkable. Cardiology consulted, appreciate help. 07/09 stress nuclear test, cards following, appreciate help. (2) COPD (chronic obstructive pulmonary disease) Current Visit: No Status: Chronic Assessment and Plan: stable, no signs of exacerbation, continue home meds. (3) Hyperlipidemia Current Visit: No Status: Chronic Assessment and Plan: will repeat lipid panel in am, continue home meds. (4) HTN (hypertension) Current Visit: Yes Status: Acute Assessment and Plan: BP stable, continue monitoring. (5) Osteoporosis Current Visit: Yes Status: Acute Assessment and Plan: cont home meds. (6) DVT prophylaxis Current Visit: Yes Status: Acute Assessment and Plan: heparin sq. - Time Spent with Patient Total time spent is greater than 50% in coordination of care (as documented) at patient's floor/unit and/or counseling patient: Internal Medicine: Result - Labs CBC & Chem 7: 07/09/19 00:53 07/09/19 00:53 Labs: Short CBC 07/08/19 07/09/19 Range/Units 14:10 00:53 WBC 7.5 7.1 (4.3-11.1) K/mcL Hgb 14.0 13.0 (11.5-15.4) g/dL Hct 42.4 40.2 (35.3-44.9) % Plt Count 309 294 (140-400) K/mcL Neutrophils # 3.2 2.9 (1.6-8.9) K/mcL BMP 07/08/19 07/09/19 14:10 00:53 Sodium 141 141 Potassium 4.0 3.8 Chloride 103 103 Carbon Dioxide 28 27 BUN 15 14 Creatinine 0.76 0.75 Glucose 106 H 121 H Calcium 9.9 9.2 Cardiac Enzymes 07/08/19 07/08/19 07/08/19 Range/Units 14:10 17:54 23:43 Troponin I < 0.03 < 0.03 < 0.03 (< 0.04) ng/mL 07/09/19 Range/Units 05:53 Troponin I < 0.03 (< 0.04) ng/mL Liver Function 07/09/19 Range/Units 00:53 Total Bilirubin 0.4 (0.3-1.0) mg/dL AST 19 (13-39) Units/L ALT 20 (7-52) Units/L Alkaline Phosphatase 81 (34-104) Units/L Albumin 3.9 (3.5-5.7) g/dL Urine 07/08/19 Range/Units 14:57 Urine Color Yellow (Yellow) Urine Clarity Clear (Clear) Urine pH 6.0 (5.0-8.0) pH Units Ur Specific [place] 1.013 (1.010-1.025) Urine Protein Negative (Neg-Trace) mg/dL Urine Glucose (UA) Normal (Normal) mg/dL - ABG Interpretation ABG results: PT/INR, D-dimer PT 10.7 Seconds (9.4-12.1) 07/08/19 14:10 - Impressions Impressions Chest X-Ray 07/08/19 14:58 IMPRESSION: No acute cardiopulmonary process. D/ / 07/08/2019 15:09:26 Cora De MD / April Ramírez Interpreting Provider: Cora De MD Consult Discharge Plan - Plan Referrals: Flakito Mercado MD [Primary Care Provider] - (2) COPD (chronic obstructive pulmonary disease) Qualifiers: COPD type: unspecified COPD Qualified Code(s): J44.9 - Chronic obstructive pulmonary disease, unspecified (3) Hyperlipidemia Qualifiers: Hyperlipidemia type: unspecified Qualified Code(s): E78.5 - Hyperlipidemia, unspecified (4) HTN (hypertension) Qualifiers: Hypertension type: essential hypertension Qualified Code(s): I10 - Essential (primary) hypertension (5) Osteoporosis Qualifiers: Osteoporosis type: unspecified Presence of current pathological fracture: unspecified Qualified Code(s): M81.0 - Age-related osteoporosis without current pathological fracture
[2019-07-09 10:58] VITALS: BP 104/71
--- NOTE | 2019-07-09 13:26 | Event Note ---
Date of Encounter: 07/09/19 Time of Encounter: 13:25 - Cardiology Event Note Low level nuclear stress test resulted. Gated EF > 70%. Small, fixed mild intensity defect in the inferior segments with normal wall motion. The findings are consistent with artifact. Perfusion imaging was negative for ischemia or in farct. Cardiology signing off. Reconsult PRN. Okay to d/c home from cardiac standpoint.
--- NOTE | 2019-07-09 15:04 | Electrocardiograph Report ---
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
--- NOTE | 2019-07-09 15:16 | Discharge Summary ---
- NOTES TO OUTPATIENT PROVIDER Notes to Outpatient Provider: f/u with PCP within 2 weeks. f/u with cardiology within a month. Date of Encounter: 07/09/19 Time of Encounter: 15:14 - Discharge Diagnosis (1) Palpitation Priority: Primary Status: Acute (2) COPD (chronic obstructive pulmonary disease) Priority: Secondary Status: Chronic Qualifiers: COPD type: unspecified COPD Qualified Code(s): J44.9 - Chronic obstructive pulmonary disease, unspecified (3) Hyperlipidemia Priority: Secondary Status: Chronic Qualifiers: Hyperlipidemia type: unspecified Qualified Code(s): E78.5 - Hyperlipidemia, unspecified (4) HTN (hypertension) Priority: Secondary Status: Acute Qualifiers: Hypertension type: essential hypertension Qualified Code(s): I10 - Essential (primary) hypertension (5) Osteoporosis Priority: Secondary Status: Acute Qualifiers: Osteoporosis type: unspecified Presence of current pathological fracture: unspecified Qualified Code(s): M81.0 - Age-related osteoporosis without current pathological fracture (6) DVT prophylaxis Priority: Primary Status: Acute Hospital course: Ms. Reece is a 63 year old female with history of hypertension, hyperlipidemi a, COPD, and osteoporosis presents to the emergency department for palpitation. She was treated for UTI with Macrobid and amoxicillin about a week ago and then started developing palpitation. She ordered an online heart monitor which read as abnormal ecg. She was seen at PCP office and a event monitor was ordered, cardiology was contact later who advised patient to the ED for further evaluation. Pt reported burning sensation on the left sided chest with occasional shortness of breath. She denies chest pain, lightheadedness, or syncope. She denies drinking large amount of coffe. She take Breo for COPD but does not use albuterol currently. She does not take herbal medicine such as Jinseng. Labs were unremarkable including normal electrolytes and negative troponin. EKG showed normal sinus rhythm with frequent multi-focal PVCs. Pt recent had a echo which was unremarkable either. Cardiology was consulted and stress nuclear test was performed, which was negative for ischemia or infarct. Metoprolol was prescribed and pt is discharged home, she will f/u with PCP and cardiology as scheduled. Discharge discussed with: patient Time spent discussing smoking cessation with patient: more than 10 minutes - Time Spent with Patient Total time spent providing and/or coordinating discharge services: Time spent: Greater than 30 minutes - Discharge Medications Prescriptions: New Metoprolol [Lopressor] 12.5 mg PO BID #60 tablet Continued Fluticasone/Vilanterol [Breo Ellipta 200-25 Mcg INH] 1 each IH BID Atorvastatin Calcium [Lipitor] 20 mg PO QPM Home Medications: Atorvastatin Calcium [Lipitor] 20 mg PO QPM 07/08/19 [History] Fluticasone/Vilanterol [Breo Ellipta 200-25 Mcg INH] 1 each IH BID 07/08/19 [History] Metoprolol [Lopressor] 12.5 mg PO BID #60 tablet 07/09/19 [Rx] Allergies/Adverse Reactions: Allergy/AdvReac Type Severity Reaction Status Date / Time azithromycin Allergy Unknown Difficulty Verified 07/09/19 10:10 Breathing Cefaclor Allergy Unknown Difficulty Verified 07/09/19 10:10 Breathing Cephalosporins Allergy Unknown Difficulty Verified 07/09/19 10:10 Breathing ciprofloxacin Allergy Unknown Difficulty Verified 07/09/19 10:10 Breathing Macrolide Antibiotics Allergy Unknown Difficulty Verified 07/09/19 10:10 Breathing ofloxacin Allergy Unknown Unknown Verified 07/09/19 10:10 Quinolones Allergy Unknown Difficulty Verified 07/09/19 10:10 Breathing Piiyxyd-Uco-Hzf Reductase Allergy Hives Verified 07/09/19 10:10 Inhibitor [Statins] Beta-Lactum Allergy Unknown Difficulty Uncoded 07/09/19 10:10 Breathing Date of admission: 07/08/19 17:00 Primary care physician: Flakito Mercado MD Consults: 07/08/19 16:34 Consult to Cardiology [CONS] Stat Comment: Consulting Provider: Cardiology [place] Reason for Consult: arrhythmia with chest burning Time Notified: 16:57 Call Completed: Yes Anticipated date of discharge: 07/09/19 - Constitutional Vitals: Temp Pulse Resp BP Pulse Ox 98.2 F 81 16 104/71 96 07/09/19 10:57 07/09/19 10:57 07/09/19 10:57 07/09/19 10:57 07/09/19 10:57 General appearance: Present: A&O X 3 Exam: PHYSICAL EXAMINATION: GENERAL APPEARANCE: The patient is alert, oriented and in no acute distress. HEENT: Head is normocephalic. The sinuses are nontender. Pupils are equal and reactive. The nares are patent. Oropharynx clear without lesions. NECK: Supple without lymphadenopathy. HEART: Regular rate and rhythm. LUNGS: No crackles or wheezes are heard. ABDOMEN: Soft, nontender, nondistended with good bowel sounds heard. Inguinal area is normal. EXTREMITIES: Without cyanosis, clubbing or edema. NEUROLOGICAL: Gross nonfocal. SKIN: Warm and dry without any rash. - Patient Status Disposition: Home, Self-Care Condition: Good Functional capacity at discharge: independent ambulation Overall status at discharge: patient is progressing back to baseline - Discharge Instructions Follow Up With: Flakito Mercado MD [Primary Care Provider] - - Diet and Activity Activity: increase activity as tolerated Diet: advance to your usual diet
--- NOTE | 2019-07-12 08:49 | Electrocardiograph Report ---
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
== END 2019-07-09 16:10 | disposition home or self-care (01) ==
LOC: EMEROOARM 13:47 → 3BNU 13:47
PROVIDERS: ADMIT Internal Medicine; ATTEND Internal Medicine